=== PATIENT | female | born 1980 | race Two or more races ===

== ENCOUNTER 2018-05-24 00:12 | Inpatient (IN) | payer MEDICAID | END 2018-05-26 20:55 | disposition home or self-care (01) | LOC: ER 00:12 → OVERFLOW 09:09 → EAST 10:58 | PROC: 0D20XUZ Change Feeding Device in Upper Intestinal Tract, External Approach (ICD-10-PCS; principal; 2018-05-26 11:19) | PROC: 30233K1 Transfusion of Nonautologous Frozen Plasma into Peripheral Vein, Percutaneous Approach (ICD-10-PCS; 2018-05-26 11:19) | DX: K94.23 Gastrostomy malfunction (principal); D68.51 Activated protein C resistance; E78.5 Hyperlipidemia, unspecified; I10 Essential (primary) hypertension; K80.80 Other cholelithiasis without obstruction; Z83.2 Family history of diseases of the blood and blood-forming organs and certain disorders involving the immune mechanism; K80.20 Calculus of gallbladder without cholecystitis without obstruction ==

== ENCOUNTER 2018-07-03 12:35 | Inpatient (IN) | payer MEDICAID ==
[~2018-07-03] VITALS: Ht 170.2 cm; Wt 54.4 kg
[~2018-07-03 12:35] MED LIST: ATOR10TA52 PEG; BACL10TA GT; FAMO-12 GT; METO25TA62 GT; ONDA4TAB5 GT; WARF4TAB33 GT
[2018-07-03] MEDS ORDERED: SODIUM CHLORIDE 0.9% 1,000 ML IV ONE ×2 (12:51)
[2018-07-03 13:50] LABS: Basophils # (auto) 0 uL; Basophils % (auto) 0.3 % (0.0-2.0); Eosinophils # (auto) 0 uL; Eosinophils % (auto) 0.4 % (0.0-7.0); Hematocrit 49.4 % (36.0-46.0); Hemoglobin 16.5 g/dL (12.2-16.2); Lymphocytes # (auto) 0.8 uL; Lymphocytes % (auto) 12.5 % (10.0-50.0); Mean Corpuscular Hemoglobin 31.9 pg (28.0-32.0); Mean Corpuscular Hgb Conc. 33.5 g/dL (32.0-36.0); Mean Corpuscular Volume 95.4 fL (80.0-100.0); Monocytes # (auto) 0.4 uL; Monocytes % (auto) 6.1 % (0.0-12.0); Neutrophils # (auto) 5.4 uL; Neutrophils % (auto) 80.7 % (37.0-80.0); Platelet Count (auto) 219 10^3/uL (140-450); Red Blood Cells 5.18 10^6/uL (4.0-5.20); White Blood Cell 6.7 10^3/uL (4.4-10.8)
[2018-07-03 14:05] LABS: INR 2.1 (0.9-1.15); Partial Thromboplastin Time 41.7 sec (23.78-33.04); Prothrombin Time 21.5 sec (9.27-12.13)
[2018-07-03 14:08] LABS: Alanine Aminotransferase 26 U/L (13-56); Anion Gap 6 (5-15); Aspartate Aminotransferase 22 U/L (15-37); BUN/Creatinine Ratio 17.2; Blood Urea Nitrogen 11 mg/dL (7-18); Calcium 9.7 mg/dL (8.5-10.1); Carbon Dioxide 25 mmol/L (21-32); Chloride 106 mmol/L (98-107); GFR African American 135 mL/min; GFR Non-African American 112 mL/min; Glucose 87 mg/dL (74-106); Potassium 3.9 mmol/L (3.5-5.1); Sodium 137 mmol/L (136-145)
[2018-07-03 14:13] LABS: Alkaline Phosphatase 105 U/L (45-117); Bilirubin, Total 1.2 mg/dL (0.2-1.0); Total Protein 8.8 g/dL (6.4-8.2)
[2018-07-03] MEDS ORDERED: NITROGLYCERIN 0.4 MG SL TAB SL PRN (16:15)
[2018-07-03] MEDS ORDERED: MORPHINE SULF INJ 2 MG/ML SYRINGE 1ML IV PRN (16:15)
[2018-07-03 17:32] LABS: Urine WBC None Seen /hpf (0 - 5)
[2018-07-03 17:59] LABS: Urine Amorphous Crystal FEW /hpf (None Seen); Urine Bacteria NONE SEEN /hpf (None Seen); Urine Blood Negative /uL (Negative); Urine Specific Gravity 1.012 (1.001-1.035)
[2018-07-03] MEDS ORDERED: WARFARIN SODIUM 2 MG TAB PO ONE (18:30)
[2018-07-03] MEDS: Ensure Enlive Vanilla 8oz Bottle PO SCH ×2 (19:30→22:00)
[2018-07-03] MEDS ORDERED: ATORVASTATIN 20 MG TAB PO SCH (22:00)
[2018-07-03] MEDS: BACLOFEN 10 MG TAB GT SCH (22:00)
[2018-07-04 06:29] LABS: INR 2.06 (0.9-1.15); Partial Thromboplastin Time 28.8 sec (23.78-33.04); Prothrombin Time 21.2 sec (9.27-12.13)
[2018-07-04] MEDS ORDERED: LORazepam 2MG/ML-1ML VIAL IV PRN (08:30)
[2018-07-04] MEDS: Ensure Enlive Vanilla 8oz Bottle PO SCH ×3 (09:18→16:00)
[2018-07-04] MEDS ORDERED: PANTOPRAZOLE 40 MG/10 ML VIAL IV SCH (10:00)
[2018-07-04] MEDS ORDERED: METOPROLOL SUCCINATE XL 50 MG TAB PO SCH (10:00)
[2018-07-04] MEDS: BACLOFEN 10 MG TAB GT SCH (10:00)
[2018-07-04 11:10] VITALS: BP 112/69
--- NOTE | 2018-07-04 11:10 | NUR ---
Admit JONAHBESSIE admitted to Med[facility] unit after SBAR received. Patient oriented to TAYLOR MERCER RN primary RN, unit, room, bed, and unit policies regarding patient care and visiting hours. Patient weighed by bedscale and encouraged to call if they need something. All questions and concerns addressed, patient verbalized understanding. present at bedside.
[2018-07-04] MEDS ORDERED: INFLUENZA QUAD 2018-2019 0.5 ML SYRG IM ONE (13:15)
--- NOTE | 2018-07-04 15:45 | NUR ---
Discharged Discharge instructions given as ordered. Encourage to follow up with PMD as instructed. All questions and concerns addressed. Patient's verbalized understanding. IV removed with catheter intact, pressure dressing applied. Patient taken to vehicle via wheelchair with all personal belongings, accompanied by staff and family member. No distress noted at time of departure.
[2018-07-04] MEDS ORDERED: WARFARIN SODIUM 5 MG TAB PO ONE (17:00)
== END 2018-07-04 15:45 | disposition home or self-care (01) | DRG 82 ==
LOC: ER 12:35 → OVERFLOW 16:34 → CENTRAL 07-04 10:50
PROVIDERS: ADMIT Nurse Practitioner Acute Care; ATTEND Internal Medicine
DX: H53.9 Unspecified visual disturbance (principal); D68.51 Activated protein C resistance; D68.9 Coagulation defect, unspecified; R13.10 Dysphagia, unspecified; I69.351 Hemiplegia and hemiparesis following cerebral infarction affecting right dominant side; K21.9 Gastro-esophageal reflux disease without esophagitis; E78.5 Hyperlipidemia, unspecified; I10 Essential (primary) hypertension; E86.0 Dehydration; I69.320 Aphasia following cerebral infarction; Z93.1 Gastrostomy status; Z88.1 Allergy status to other antibiotic agents; Z79.01 Long term (current) use of anticoagulants
CPT/HCPCS: 36415; 70450; 70551; 71045; 80053; 81001; 81241; 83880; 84484; 85025; 85610; 85730; 93005; G0378

== ENCOUNTER 2018-08-22 15:34 | Inpatient (IN) | payer MEDICAID | END 2018-08-26 14:25 | disposition home or self-care (01) | LOC: ER 15:34 → OVERFLOW 19:43 → CENTRAL 21:31 | PROC: 30233K1 Transfusion of Nonautologous Frozen Plasma into Peripheral Vein, Percutaneous Approach (ICD-10-PCS; principal; 2018-08-24 10:03) | DX: Z46.59 Encounter for fitting and adjustment of other gastrointestinal appliance and device (principal); I63.9 Cerebral infarction, unspecified; G93.40 Encephalopathy, unspecified; D68.51 Activated protein C resistance; G81.91 Hemiplegia, unspecified affecting right dominant side; R47.01 Aphasia; Z43.1 Encounter for attention to gastrostomy ==

== ENCOUNTER 2019-12-03 13:01 | Inpatient (IN) | payer MEDICAID ==
[~2019-12-03] VITALS: Ht 170.2 cm; Wt 57.3 kg
[~2019-12-03 13:01] MED LIST changes: -METO25TA62 GT; +METO25TA93 GT; -ONDA4TAB5 GT
[2019-12-03] MEDS ORDERED: SODIUM CHLORIDE 0.9% 1,000 ML IV ONE (13:49)
[2019-12-03 14:19] LABS: Basophils # (auto) 0 10 ^3/uL (0-0.2); Basophils % (auto) 0.4 % (0.0-2.0); Eosinophils # (auto) 0.1 10 ^3/uL (0-0.8); Eosinophils % (auto) 1.1 % (0.0-7.0); Hematocrit 48.5 % (36.0-46.0); Hemoglobin 15.9 g/dL (12.2-16.2); Lymphocytes # (auto) 1.4 10 ^3/uL (0.4-5.4); Lymphocytes % (auto) 17.4 % (10.0-50.0); Mean Corpuscular Hemoglobin 31.5 pg (28.0-32.0); Mean Corpuscular Hgb Conc. 32.8 g/dL (32.0-36.0); Monocytes # (auto) 0.4 10 ^3/uL (0-1.3); Monocytes % (auto) 5.5 % (0.0-12.0); Neutrophils % (auto) 75.6 % (37.0-80.0); Platelet Count (auto) 200 10^3/uL (140-450); Red Blood Cells 5.06 10^6/uL (4.0-5.20); Red Cell Distribution Width 12.4 % (11.8-14.3); White Blood Cell 7.9 10^3/uL (4.4-10.8)
[2019-12-03 14:34] LABS: INR 2.38 (0.9-1.15); Partial Thromboplastin Time 38.4 sec (23.0-31.2)
[2019-12-03 14:45] LABS: Albumin 3.9 g/dL (3.4-5.0); Anion Gap 6 (5-15); BUN/Creatinine Ratio 19.1; Blood Urea Nitrogen 13 mg/dL (7-18); Calcium 9.1 mg/dL (8.5-10.1); Carbon Dioxide 24 mmol/L (21-32); Chloride 108 mmol/L (98-107); GFR African American 125 mL/min; GFR Non-African American 103 mL/min; Glucose 94 mg/dL (74-106); Potassium 3.7 mmol/L (3.5-5.1); Sodium 138 mmol/L (136-145)
[2019-12-03 14:50] LABS: Alanine Aminotransferase 30 U/L (13-56); Alkaline Phosphatase 93 U/L (45-117); Aspartate Aminotransferase 25 U/L (15-37); Bilirubin, Total 1.3 mg/dL (0.2-1.0); Total Protein 8.1 g/dL (6.4-8.2)
[2019-12-03] MEDS ORDERED: NITROGLYCERIN 0.4 MG SL TAB SL PRN ×2 (15:45→21:45)
[2019-12-03] MEDS ORDERED: MORPHINE SULF INJ 2 MG/ML SYRINGE 1ML IV PRN ×3 (15:45→21:45)
[2019-12-03 20:43] LABS: Urine Bacteria NONE SEEN /hpf (None Seen); Urine Blood 2+ /uL (Negative); Urine Mucus FEW (None Seen); Urine Specific Gravity 1.028 (1.001-1.035); Urine WBC 1 /hpf (0 - 5)
[2019-12-03] MEDS ORDERED: ONDANSETRON HCL 4 MG/2 ML VIAL IV PRN (21:45)
[2019-12-03] MEDS ORDERED: IPRATROPIUM BROM 0.5 MG/2.5ML INH SOL NEB PRN (22:00)
[2019-12-03] MEDS ORDERED: METOPROLOL TARTRATE 1MG/1ML-5ML VIAL IV PRN (22:00)
--- NOTE | 2019-12-03 22:37 | NUR ---
Respiratory note: NO PRN TX GIVEN AT THIS TIME, NOT INDICATED. SPO2 99% ON RA, HR 115, RR 20. NO SOB NOTED.
[2019-12-03] MEDS: CLINDAMYCIN 300MG IV 50 ML IV SCH (22:39)
[2019-12-03 22:40] LABS: Amphetamine Screen, Urine NEGATIVE (NEGATIVE); Barbiturate Scree,Urine NEGATIVE (NEGATIVE); Benzodiazephine Screen, Urine NEGATIVE (NEGATIVE); Cannabinoid Screen, Urine NEGATIVE (NEGATIVE); Cocaine Screen, Urine NEGATIVE (NEGATIVE); Opiate Scree,Urine NEGATIVE (NEGATIVE); Phencyclidine Screen, Urine NEGATIVE (NEGATIVE)
[2019-12-03] MEDS: AZTREONAM 1GM INJ 1 GM in D5W 5% 50 ML IV SCH (23:39)
[2019-12-04] VITALS (7 sets, daily range): BP systolic 97–123; BP diastolic 61–80
[2019-12-04] MEDS: D5W/SOD CHLO 0.9% 1,000 ML IV SCH ×3 (01:13→14:16)
--- NOTE | 2019-12-04 05:00 | NUR ---
Telemetry admit from ER BESSIE MCKENZIE admitted to Telemetry unit after SBAR received. Patient oriented to ARMANDO HILLS, RN primary RN, unit, room, bed, and unit policies regarding patient care and visiting hours. Patient now on continuous telemetry monitoring, tele box #[id number] and telemetry reading on arrival to unit is ST. Patient placed on bedside oxygen, weighed by bedscale and encouraged to call if they need something. All questions and concerns addressed, patient verbalized understanding.
--- NOTE | 2019-12-04 05:05 | NUR ---
Admission Admission not complete due to patient non-verbal, will endorse information to dayshift nurse.
[2019-12-04] MEDS: AZTREONAM 1GM INJ 1 GM in D5W 5% 50 ML IV SCH ×2 (06:17→12:46)
[2019-12-04] MEDS: CLINDAMYCIN 300MG IV 50 ML IV SCH (06:27)
--- NOTE | 2019-12-04 07:51 | NUR ---
RT NOTE: NO TX NDICATED AT THIS TIME. NO SIGNS OF RESPIRATORY DISTRESS. ON RA SPO2 100 HR 98 RR 18. LUNG SOUNDS CLEAR/DIMINISHED T/O. PT AWARE TO PAGE FOR RESPIRATORY SHOULD NEED FOR TX ARISE. WILL CONTINUE TO MONITOR.
[2019-12-04] MEDS ORDERED: ENOXAPARIN SOD 60 MG/0.6 ML SYRINGE SC ONE (08:00)
[2019-12-04 09:29] LABS: Basophils # (auto) 0 10 ^3/uL (0-0.2); Basophils % (auto) 0.3 % (0.0-2.0); Eosinophils # (auto) 0 10 ^3/uL (0-0.8); Eosinophils % (auto) 0.2 % (0.0-7.0); Hematocrit 44.6 % (36.0-46.0); Hemoglobin 14.9 g/dL (12.2-16.2); Lymphocytes # (auto) 1.2 10 ^3/uL (0.4-5.4); Lymphocytes % (auto) 14.7 % (10.0-50.0); Mean Corpuscular Hemoglobin 32.2 pg (28.0-32.0); Mean Corpuscular Hgb Conc. 33.4 g/dL (32.0-36.0); Mean Corpuscular Volume 96.5 fL (80.0-100.0); Monocytes # (auto) 0.6 10 ^3/uL (0-1.3); Monocytes % (auto) 7.2 % (0.0-12.0); Neutrophils # (auto) 6.3 10 ^3/uL (1.6-8.6); Neutrophils % (auto) 77.6 % (37.0-80.0); Nucleated Red Blood Cells % 0.1 %; Platelet Count (auto) 188 10^3/uL (140-450); Red Blood Cells 4.62 10^6/uL (4.0-5.20); Red Cell Distribution Width 12.3 % (11.8-14.3); White Blood Cell 8.1 10^3/uL (4.4-10.8)
[2019-12-04 09:46] LABS: INR 2.24 (0.9-1.15); Partial Thromboplastin Time 33.4 sec (23.0-31.2)
[2019-12-04 09:48] LABS: Albumin 3.9 g/dL (3.4-5.0); Magnesium 2.4 mg/dL (1.6-2.6); Potassium 3.7 mmol/L (3.5-5.1)
[2019-12-04 09:52] LABS: BUN/Creatinine Ratio 16.4; Bilirubin, Total 1.7 mg/dL (0.2-1.0); Total Protein 7.9 g/dL (6.4-8.2)
[2019-12-04] MEDS ORDERED: phytonadione 10 MG in SODIUM CHL 0.9% 50 ML IV ONE (10:45)
[2019-12-04] MEDS: PANTOPRAZOLE 40 MG/10 ML VIAL INJ IV SCH (12:45)
--- NOTE | 2019-12-04 14:26 | NUR ---
Consult Consider Osmolite 1.2 at 65 ml/hr per MD approval Est energy needs 0714-7854 kcal (30-33kcal/kg BW 59.3kg) Est protein needs 47-59g (0.8-1g/kg BW 59.3kg) Will reassess prn. Addendum: 12/04/19 at [address] Amended: Links added.
--- NOTE | 2019-12-04 19:55 | NUR ---
Opening Shift Note Assumed care of patient, awake and alert. No S/S of distress/SOB or pain. Patient is aphasic, instructed on POC and to call for assist PRN, will continue to monitor for changes Q1hr and PRN.
--- NOTE | 2019-12-04 22:00 | NUR ---
Respiratory note: PT SEEN AND ASSESSED FOR PRN MED NEB TX AT 2200. TX IS NOT INDICATED AT THIS TIME, NO RESPIRATORY DISTRESS NOTED. HR 81 RR 20 SP02 100% ON ROOM AIR.
[2019-12-05 01:53] VITALS: BP 97/61
[2019-12-05 05:00] VITALS: BP 103/69
--- NOTE | 2019-12-05 07:28 | NUR ---
Respiratory note: PT SEEN AND ASSESSED FOR PRN MED NEB TX. TX IS NOT INDICATED AT THIS TIME, NO RESPIRATORY DISTRESS NOTED. HR 89 RR 16 SP02 96% ON ROOM AIR.
[2019-12-05 07:34] LABS: INR 1.19 (0.9-1.15)
[2019-12-05 09:00] VITALS: BP 98/62
[2019-12-05] MEDS ORDERED: MIDAZOLAM HCL 5 MG/ML-1ML VIAL ONE (09:10)
[2019-12-05] MEDS ORDERED: NALOXONE HCL 0.4 MG/ML VIAL ONE (09:10)
[2019-12-05] MEDS ORDERED: diphenhdrAMINE HCL 50 MG/1 ML VL ONE (09:10)
[2019-12-05] MEDS ORDERED: fentaNYL CITRATE 100 MCG/2 ML VL ONE (09:11)
[2019-12-05] MEDS ORDERED: ceFAZolin 1GM/50ML 50 ML IV ONE (09:28)
[2019-12-05] MEDS: PANTOPRAZOLE 40 MG/10 ML VIAL INJ IV SCH (09:48)
[2019-12-05] MEDS: D5W/SOD CHLO 0.9% 1,000 ML IV SCH (09:48)
[2019-12-05] MEDS ORDERED: CLINDAMYCIN 600MG IV 50 ML IV ONE (09:50)
--- NOTE | 2019-12-05 10:30 | NUR ---
SPOKE WITH AND LET HIM KNOW THAT PATIENT WOULD BE DISCHARGED TODAY.
[2019-12-05 13:00] VITALS: BP 123/74
--- NOTE | 2019-12-05 15:38 | NUR ---
WOUND CARE NOTE: WOUND CONSULT ORDERED FOR PATIENT FOR LOW MARK SCORE OF 10. PATIENT ADMITTED TO [facility] WITH DIAGNOSIS OF PEG TUBE MALFUNCTION. PATIENT IS WOUND FREE AT THIS TIME, HERE TO HAVE EGD, NEW PEG TUBE INSERTED. SHE IS VERY THIN, WEIGHING ONLY 57 KG. SHE IS WOUND FREE, BUT IMMOBILE. SPECIALTY AIR MATTRESS ORDERED AT THIS TIME. PATIENT TO BE PLACED, PENDING DELIVERY BY [facility]. SKIN/WOUND CARE PLAN IMPLEMENTED. PATIENT WOULD BENEFIT FROM: FREQUENT TURN SCHEDULE Q 2HRS, PRN CONDITION PERMITS, WITH PRESSURE REDISTRIBUTION USING PILLOWS/WEDGES, BID/PRN APPLICATION WITH MOISTURE BARRIER CREAM, OPTIFOAM GENTLE SACRAL DRESSING PREVENTATIVE, SPECIALTY AIR MATTRESS, SKIN/WOUND CARE PLAN, DIETARY CONSULT FOR LOW MARK SCORE 10, CONTINUED MONITORING BY WOUND CARE TEAM.
--- NOTE | 2019-12-05 16:38 | NUR ---
CALLED HE ANSWERED INFORMED HIM OF DISCHARGE ORDER AND HE STATED HE CAN BE HERE IN 15MINUTES TO ACCOUNT SERVICES MANAGER PT
[2019-12-05 17:00] VITALS: BP 106/68
--- NOTE | 2019-12-05 18:31 | NUR ---
Discharge instructions given as ordered. Encourage to follow up with PMD as instructed. All questions and concerns addressed. Patient verbalized understanding. Medication reconciliation form completed and copy given to patient.IV removed with catheter intact, pressure dressing applied. Telemetry unit returned to ICU. Patient taken to vehicle via wheelchair with all personal belongings, accompanied by staff and family member. No distress noted at time of departure.
== END 2019-12-05 18:30 | disposition home or self-care (01) | DRG 254 ==
LOC: ER 13:01 → TELE 13:02 → TELE-EAST 12-04 04:25
PROVIDERS: ADMIT Hospitalist; ATTEND Internal Medicine Nephrology
PROC: 0DB68ZX Excision of Stomach, Via Natural or Artificial Opening Endoscopic, Diagnostic (ICD-10-PCS; 2019-12-05)
PROC: 0DH63UZ Insertion of Feeding Device into Stomach, Percutaneous Approach (ICD-10-PCS; principal; 2019-12-05 09:54)
DX: Z43.1 Encounter for attention to gastrostomy (principal); D68.2 Hereditary deficiency of other clotting factors; D68.69 Other thrombophilia; R00.0 Tachycardia, unspecified; E78.5 Hyperlipidemia, unspecified; K21.9 Gastro-esophageal reflux disease without esophagitis; I10 Essential (primary) hypertension; K29.70 Gastritis, unspecified, without bleeding; G82.50 Quadriplegia, unspecified; Z79.01 Long term (current) use of anticoagulants; Z79.899 Other long term (current) drug therapy; Z74.01 Bed confinement status; Z99.3 Dependence on wheelchair; Z97.5 Presence of (intrauterine) contraceptive device; Y83.8 Other surgical procedures as the cause of abnormal reaction of the patient, or of later complication, without mention of misadventure at the time of the procedure; I69.365 Other paralytic syndrome following cerebral infarction, bilateral; Z03.818 Encounter for observation for suspected exposure to other biological agents ruled out
CPT/HCPCS: 36415; 43239; 43246; 71045; 74176; 80053; 80307; 81001; 83036; 83735; 84146; 84484; 84702; 85025; 85610; 85730; 86850; 86900; 86901; 87040; 87086; 87426; C9113; G0378; J0690; J2250; J3430; J3490; J7060